=== PATIENT | male | born 1930 | race Caucasian/White ===

== ENCOUNTER 2016-12-03 09:09 | Outpatient (CLI) | payer MEDICARE | END 2016-12-03 09:10 | disposition home or self-care (01) | DX: I08.0 Rheumatic disorders of both mitral and aortic valves (principal); I51.7 Cardiomegaly ==

== ENCOUNTER 2016-12-27 07:14 | Outpatient (CLI) | payer MEDICARE | END 2016-12-27 07:15 | disposition home or self-care (01) | DX: Z94.0 Kidney transplant status (principal); Z48.298 Encounter for aftercare following other organ transplant; T86.90 Unspecified complication of unspecified transplanted organ and tissue; E83.40 Disorders of magnesium metabolism, unspecified ==

== ENCOUNTER 2017-01-24 07:35 | Outpatient (CLI) | payer MEDICARE | END 2017-01-24 07:36 | disposition home or self-care (01) | DX: Z94.0 Kidney transplant status (principal); Z48.298 Encounter for aftercare following other organ transplant; T86.40 Unspecified complication of liver transplant; E83.40 Disorders of magnesium metabolism, unspecified ==

== ENCOUNTER 2017-03-21 07:15 | Outpatient (CLI) | payer MEDICARE | END 2017-03-21 07:16 | disposition home or self-care (01) | DX: Z94.0 Kidney transplant status (principal); Z48.298 Encounter for aftercare following other organ transplant; T86.40 Unspecified complication of liver transplant; E83.40 Disorders of magnesium metabolism, unspecified ==

== ENCOUNTER 2017-04-03 07:01 | Outpatient (CLI) | payer MEDICARE | END 2017-04-03 07:02 | disposition home or self-care (01) | LOC: LAB.F 07:01 | PROVIDERS: ATTEND Internal Medicine Nephrology | DX: T86.10 Unspecified complication of kidney transplant (principal) | CPT/HCPCS: 36415; 80197 ==

== ENCOUNTER 2017-07-30 13:28 | Outpatient (CLI) | payer MEDICARE | END 2017-07-30 13:29 | disposition home or self-care (01) | LOC: SC 13:28 | PROVIDERS: ATTEND Internal Medicine Pulmonary Disease | DX: G47.8 Other sleep disorders (principal); R06.83 Snoring; Z94.0 Kidney transplant status | CPT/HCPCS: 99203; G0463; 99212 ==

== ENCOUNTER 2017-08-01 07:42 | Day surgery (SDC) | payer MEDICARE ==
[~2017-08-01 07:42] MED LIST: BRIMONIDINE 0.2% OPHTH DROPS 5 ML ONE; TIMOLOL 0.5% OPHTH DROPS ONE
[2017-08-01] MEDS ORDERED: KETOROLAC 0.45% OPHTH DROPS ONE (08:10)
[2017-08-01] MEDS ORDERED: PROPARACAINE 0.5% OPHTH DROPS 15 ML ONE (08:10)
[2017-08-01] MEDS ORDERED: PHENYLEPHRINE 2.5% OPHTH 2 ML DROPS ONE (08:10)
[2017-08-01] MEDS ORDERED: CYCLOPENTOLATE 1% OPHTH DROPS 2 ML ONE (08:10)
[2017-08-01] MEDS ORDERED: LACTATED RINGERS 500 ML IV ONE (08:15)
[2017-08-01] MEDS ORDERED: PROPARACAINE 0.5% OPHTH DROPS 15 ML OPTH ONE ×2 (08:20→08:58)
[2017-08-01] MEDS ORDERED: CYCLOPENTOLATE 1% OPHTH DROPS 2 ML OPTH ONE (08:20)
[2017-08-01] MEDS ORDERED: KETOROLAC 0.45% OPHTH DROPS OPTH ONE (08:20)
[2017-08-01] MEDS ORDERED: PHENYLEPHRINE 2.5% OPHTH 2 ML DROPS OPTH ONE (08:20)
[2017-08-01] MEDS ORDERED: TIMOLOL 0.5% OPHTH DROPS OPTH ONE (08:58)
[2017-08-01] MEDS ORDERED: BSS/LIDOCAINE/EPINEPHRINE 1 ML SYRINGE IO ONE ×2 (08:58)
[2017-08-01] MEDS ORDERED: TRIAMCIN/MOXIFLOX/VANCO 1 ML VIAL IO ONE ×2 (08:58)
[2017-08-01] MEDS ORDERED: BRIMONIDINE 0.2% OPHTH DROPS 5 ML OPTH ONE (08:58)
[2017-08-01] MEDS ORDERED: CHONDR SULF/HYALURONATE SYRINGE IO ONE (08:58)
[2017-08-01] MEDS ORDERED: EPINEPHrine 1 MG/ML AMP IVP ONE (08:58)
[2017-08-01] MEDS ORDERED: MIDAZOLAM 2 MG/2 ML VIAL IVP ONE (09:00)
[2017-08-01 09:42] VITALS: BP 133/72
--- NOTE | 2017-08-01 10:46 | OPERATIVE REPORT ---
DATE OF SURGERY: 08/01/2017 00:00:00 PREOPERATIVE DIAGNOSIS: Visually significant cataract, right eye, complex due to a small pupil requiring pupil expansion with a Malyugin ring. This is his first cataract surgery. POSTOPERATIVE DIAGNOSIS: Visually significant cataract, right eye, complex due to a small pupil requiring pupil expansion with a Malyugin ring. This is his first cataract surgery. NAME OF PROCEDURE: Phacoemulsification posterior chamber intraocular lens implant, right eye. SURGEON: Orlando Suárez MD. ANESTHESIA: Monitored anesthesia care. COMPLICATIONS: None. OPERATIVE INDICATIONS: This is an 86-year-old man with progressive vision loss in the right eye due to 2+ nuclear sclerotic and 2+ cortical cataract. Best corrected visual acuity was 20/30 with glare to 20/60 in the right eye. Indications for surgery were overall decrease in vision, difficulty seeing words and game scores on TV, difficulty driving in low light or at night, difficulty driving at night because of headlights from other vehicles, difficulty with glare or bright lights in any situation, and he says that words on paper look fuzzy. He was consented at length concerning the risks and benefits of cataract surgery, after which he expressed a desire to proceed with surgery. OPERATIVE PROCEDURE: The patient was taken into OR #2 and placed under monitored anesthesia care. A surgical time-out was conducted confirming the correct patient, correct procedure and correct surgical site. He was given topical anesthesia and then prepped and draped in the usual sterile fashion. The eye was entered at the 12 and 9 o'clock positions. Intracameral Shugarcaine was injected into the anterior chamber followed by Viscoat. A 7 mm Malyugin ring was then inserted into the anterior chamber and engaged the pupil margin at 4 points to expand the pupil. Then, a continuous tear curvilinear capsulorrhexis was performed. The nucleus was hydrodissected and phacoemulsified. The cortex was evacuated using automated infusion aspiration. Provisc was injected in the capsular bag and a 23.0 diopter intraocular lens was inserted into the bag. The Malyugin ring was then disengaged from the pupil margin and removed from the anterior chamber. I/A was used to evacuate the viscoelastic materials. Approximately 0.7 mL of a mixture of triamcinolone, moxifloxacin, and vancomycin was injected subconjunctivally in the superior quadrant for infection and inflammation prophylaxis. The eye was inflated to a physiologic pressure using balanced salt solution and found to be watertight. The patient was taken from the operating room in good condition and given postoperative instructions. JOB #: [id number] EXT JOB #:[id number] CRISS
== END 2017-08-01 07:43 | disposition home or self-care (01) ==
LOC: SDS 07:42
PROVIDERS: ATTEND Ophthalmology
PROC: 08RJ3JZ Replacement of Right Lens with Synthetic Substitute, Percutaneous Approach (ICD-10-PCS; principal; 2017-08-01 09:05)
DX: H25.811 Combined forms of age-related cataract, right eye (principal); H57.03 Miosis; Z79.82 Long term (current) use of aspirin
CPT/HCPCS: 66982; A9270; J3490; V2632

== ENCOUNTER 2017-09-17 18:57 | Outpatient (CLI) | payer MEDICARE | END 2017-09-17 18:58 | disposition home or self-care (01) | LOC: SC 18:57 | PROVIDERS: ATTEND Internal Medicine Pulmonary Disease | DX: G47.33 Obstructive sleep apnea (adult) (pediatric) (principal); G47.61 Periodic limb movement disorder; Z68.26 Body mass index [BMI] 26.0-26.9, adult | CPT/HCPCS: 95810 ==

== ENCOUNTER 2017-09-25 09:42 | Outpatient (CLI) | payer MEDICARE | END 2017-09-25 09:43 | disposition home or self-care (01) | LOC: SC 09:42 | PROVIDERS: ATTEND Nurse Practitioner Family | DX: G47.33 Obstructive sleep apnea (adult) (pediatric) (principal); G47.61 Periodic limb movement disorder; I49.9 Cardiac arrhythmia, unspecified | CPT/HCPCS: 99214; G0463; 99212 ==

== ENCOUNTER 2017-11-04 07:14 | Outpatient (CLI) | payer MEDICARE ==
[2017-11-04 10:49] LABS: BASOPHILS % (AUTO) 0.5 %; EOSINOPHILS # (AUTO) 0.1 10^3/uL (0.0-0.7); EOSINOPHILS % (AUTO) 3.4 %; HCT - HEMATOCRIT 37.1 % (42.0-52.0); HGB - HEMOGLOBIN 12.8 g/dL (14.0-18.0); LYMPHOCYTES # (AUTO) 0.5 10^3/uL (1.5-3.5); LYMPHOCYTES % (AUTO) 12.7 %; MEAN CORPUSCULAR HEMOGLOBIN 32.6 pg (27.0-31.0); MEAN CORPUSCULAR HGB CONC 34.4 g/dL (32.0-36.0); MEAN CORPUSCULAR VOLUME 94.6 fL (80.0-94.0); MEAN PLATELET VOLUME 9.1 fL (7.4-11.4); MONOCYTES # (AUTO) 0.5 10^3/uL (0.0-1.0); NEUTROPHILS # (AUTO) 2.9 10^3/uL (1.5-6.6); NEUTROPHILS % (AUTO) 71.4 %; NUCLEATED RED BLOOD CELLS AUTO 0.1 /100WBC; RED BLOOD COUNT 3.92 10^6/uL (4.70-6.10); RED CELL DISTRIBUTION WIDTH 13.4 % (12.0-15.0); UNCORRECTED WHITE BLOOD COUNT 4.1 x10^3/uL; WHITE BLOOD COUNT 4.1 x10^3/uL (4.8-10.8)
[2017-11-04 10:54] LABS: BILIRUBIN,URINE NEGATIVE (NEGATIVE)
[2017-11-04 10:56] LABS: UA CHARGE (STRIP ONLY) YES; UR CULTURE IF IND NOT INDICATED
[2017-11-04 11:02] LABS: ALBUMIN/GLOBULIN RATIO 1.5 (1.0-2.2); BILIRUBIN,TOTAL 0.9 mg/dL (0.2-1.0); CREATININE 1.6 mg/dL (0.6-1.2); PHOSPHORUS 3.3 mg/dL (2.5-4.6); POTASSIUM 4.4 mmol/L (3.5-5.0)
== END 2017-11-04 07:15 | disposition home or self-care (01) ==
LOC: LAB.F 07:14
PROVIDERS: ATTEND Internal Medicine Nephrology
DX: N05.9 Unspecified nephritic syndrome with unspecified morphologic changes (principal); D70.9 Neutropenia, unspecified; T86.10 Unspecified complication of kidney transplant; Z94.0 Kidney transplant status; T86.40 Unspecified complication of liver transplant; E83.40 Disorders of magnesium metabolism, unspecified; Z51.81 Encounter for therapeutic drug level monitoring; Z48.298 Encounter for aftercare following other organ transplant
CPT/HCPCS: 36415; 80053; 80197; 81001; 81003; 82570; 83735; 84100; 84156; 85025; 87086

== ENCOUNTER 2017-12-02 07:20 | Outpatient (CLI) | payer MEDICARE ==
[2017-12-02 12:02] LABS: BASOPHILS % (AUTO) 0.6 %; EOSINOPHILS # (AUTO) 0.2 10^3/uL (0.0-0.7); EOSINOPHILS % (AUTO) 3.3 %; HGB - HEMOGLOBIN 13.1 g/dL (14.0-18.0); LYMPHOCYTES # (AUTO) 0.5 10^3/uL (1.5-3.5); LYMPHOCYTES % (AUTO) 10.5 %; MEAN CORPUSCULAR HEMOGLOBIN 32.1 pg (27.0-31.0); MEAN CORPUSCULAR HGB CONC 33.7 g/dL (32.0-36.0); MEAN CORPUSCULAR VOLUME 95.1 fL (80.0-94.0); MEAN PLATELET VOLUME 8.5 fL (7.4-11.4); MONOCYTES # (AUTO) 0.6 10^3/uL (0.0-1.0); MONOCYTES % (AUTO) 12.3 %; NEUTROPHILS # (AUTO) 3.7 10^3/uL (1.5-6.6); NEUTROPHILS % (AUTO) 73.3 %; PLT - PLATELET COUNT 142 10^3/uL (130-450); RED CELL DISTRIBUTION WIDTH 13.4 % (12.0-15.0); WHITE BLOOD COUNT 5.1 x10^3/uL (4.8-10.8)
[2017-12-02 12:26] LABS: BILIRUBIN,URINE NEGATIVE (NEGATIVE); GLUCOSE, URINE (UA) NEGATIVE (NEGATIVE); KETONES,URINE (UA) NEGATIVE (NEGATIVE); LEUKOCYTE ESTERASE, URINE NEGATIVE (NEGATIVE); NITRITE,URINE NEGATIVE (NEGATIVE); OCCULT BLOOD,URINE NEGATIVE (NEGATIVE); PROTEIN,URINE NEGATIVE (NEGATIVE); UROBILINOGEN,URINE 0.2 (NORMAL) E.U./dL (NORMAL)
[2017-12-02 12:27] LABS: CLARITY,URINE CLEAR (CLEAR)
[2017-12-02 12:39] LABS: ALBUMIN 3.6 g/dL (3.2-5.5); ALBUMIN/GLOBULIN RATIO 1.4 (1.0-2.2); BILIRUBIN,TOTAL 0.7 mg/dL (0.2-1.0); CALCIUM 8.8 mg/dL (8.5-10.3); CREATININE 1.6 mg/dL (0.6-1.2); MAGNESIUM 1.9 mg/dL (1.7-2.8); PHOSPHORUS 2.7 mg/dL (2.5-4.6); TOTAL PROTEIN 6.2 g/dL (6.7-8.2)
== END 2017-12-02 07:21 | disposition home or self-care (01) ==
LOC: LAB.F 07:20
PROVIDERS: ATTEND Internal Medicine Nephrology
DX: Z94.0 Kidney transplant status (principal); Z51.81 Encounter for therapeutic drug level monitoring; T86.90 Unspecified complication of unspecified transplanted organ and tissue; E83.40 Disorders of magnesium metabolism, unspecified
CPT/HCPCS: 36415; 80053; 80197; 81001; 81003; 83735; 84100; 84156; 85025; 87086

== ENCOUNTER 2017-12-30 07:03 | Outpatient (CLI) | payer MEDICARE ==
[2017-12-30 10:57] LABS: BILIRUBIN,URINE NEGATIVE (NEGATIVE); GLUCOSE, URINE (UA) NEGATIVE (NEGATIVE); KETONES,URINE (UA) NEGATIVE (NEGATIVE); LEUKOCYTE ESTERASE, URINE NEGATIVE (NEGATIVE); NITRITE,URINE NEGATIVE (NEGATIVE); OCCULT BLOOD,URINE NEGATIVE (NEGATIVE); PROTEIN,URINE NEGATIVE (NEGATIVE); UROBILINOGEN,URINE 0.2 (NORMAL) E.U./dL (NORMAL)
[2017-12-30 11:03] LABS: BASOPHILS % (AUTO) 0.5 %; EOSINOPHILS # (AUTO) 0.2 10^3/uL (0.0-0.7); EOSINOPHILS % (AUTO) 3.7 %; HGB - HEMOGLOBIN 13.1 g/dL (14.0-18.0); LYMPHOCYTES # (AUTO) 0.6 10^3/uL (1.5-3.5); MEAN CORPUSCULAR HEMOGLOBIN 32.1 pg (27.0-31.0); MEAN CORPUSCULAR HGB CONC 34.2 g/dL (32.0-36.0); MEAN CORPUSCULAR VOLUME 93.9 fL (80.0-94.0); MEAN PLATELET VOLUME 8.3 fL (7.4-11.4); MONOCYTES # (AUTO) 0.6 10^3/uL (0.0-1.0); MONOCYTES % (AUTO) 13.4 %; NEUTROPHILS # (AUTO) 3.4 10^3/uL (1.5-6.6); NEUTROPHILS % (AUTO) 70.4 %; PLT - PLATELET COUNT 170 10^3/uL (130-450); RED BLOOD COUNT 4.08 10^6/uL (4.70-6.10); RED CELL DISTRIBUTION WIDTH 13.6 % (12.0-15.0); WHITE BLOOD COUNT 4.8 x10^3/uL (4.8-10.8)
[2017-12-30 11:10] LABS: ALBUMIN 3.5 g/dL (3.2-5.5); ALBUMIN/GLOBULIN RATIO 1.2 (1.0-2.2); BILIRUBIN,TOTAL 0.6 mg/dL (0.2-1.0); CALCIUM 8.6 mg/dL (8.5-10.3); CREATININE 1.5 mg/dL (0.6-1.2); MAGNESIUM 2.2 mg/dL (1.7-2.8); PHOSPHORUS 3.2 mg/dL (2.5-4.6); TOTAL PROTEIN 6.4 g/dL (6.7-8.2)
[2017-12-30 11:20] LABS: CLARITY,URINE CLEAR (CLEAR)
== END 2017-12-30 07:04 | disposition home or self-care (01) ==
LOC: LAB.F 07:03
PROVIDERS: ATTEND Internal Medicine Nephrology
DX: Z94.0 Kidney transplant status (principal); T86.90 Unspecified complication of unspecified transplanted organ and tissue; E83.40 Disorders of magnesium metabolism, unspecified; Z51.81 Encounter for therapeutic drug level monitoring
CPT/HCPCS: 36415; 80053; 80195; 80197; 81001; 81003; 81599; 83735; 84100; 84156; 85025; 87086

== ENCOUNTER 2018-02-06 07:10 | Outpatient (CLI) | payer MEDICARE ==
[2018-02-06 12:35] LABS: BASOPHILS % (AUTO) 0.4 %; BILIRUBIN,URINE NEGATIVE (NEGATIVE); EOSINOPHILS # (AUTO) 0.1 10^3/uL (0.0-0.7); EOSINOPHILS % (AUTO) 2.1 %; GLUCOSE, URINE (UA) NEGATIVE (NEGATIVE); HGB - HEMOGLOBIN 12.4 g/dL (14.0-18.0); KETONES,URINE (UA) NEGATIVE (NEGATIVE); LEUKOCYTE ESTERASE, URINE NEGATIVE (NEGATIVE); LYMPHOCYTES # (AUTO) 0.4 10^3/uL (1.5-3.5); LYMPHOCYTES % (AUTO) 8.1 %; MEAN CORPUSCULAR HEMOGLOBIN 31.1 pg (27.0-31.0); MEAN CORPUSCULAR HGB CONC 34.1 g/dL (32.0-36.0); MEAN CORPUSCULAR VOLUME 91.2 fL (80.0-94.0); MEAN PLATELET VOLUME 7.9 fL (7.4-11.4); MONOCYTES # (AUTO) 0.6 10^3/uL (0.0-1.0); MONOCYTES % (AUTO) 13.4 %; NEUTROPHILS # (AUTO) 3.3 10^3/uL (1.5-6.6); NITRITE,URINE NEGATIVE (NEGATIVE); OCCULT BLOOD,URINE NEGATIVE (NEGATIVE); PH,URINE 5.5 PH (5.0-7.5); PLT - PLATELET COUNT 130 10^3/uL (130-450); PROTEIN,URINE NEGATIVE (NEGATIVE); RED BLOOD COUNT 3.99 10^6/uL (4.70-6.10); RED CELL DISTRIBUTION WIDTH 13.3 % (12.0-15.0); UROBILINOGEN,URINE 0.2 (NORMAL) E.U./dL (NORMAL); WHITE BLOOD COUNT 4.4 x10^3/uL (4.8-10.8)
[2018-02-06 13:04] LABS: CLARITY,URINE CLEAR (CLEAR)
[2018-02-06 13:10] LABS: ALBUMIN 3.4 g/dL (3.2-5.5); ALBUMIN/GLOBULIN RATIO 1.2 (1.0-2.2); BILIRUBIN,TOTAL 0.8 mg/dL (0.2-1.0); CALCIUM 8.7 mg/dL (8.5-10.3); CREATININE 1.4 mg/dL (0.6-1.2); MAGNESIUM 2.1 mg/dL (1.7-2.8); PHOSPHORUS 2.8 mg/dL (2.5-4.6); TOTAL PROTEIN 6.3 g/dL (6.7-8.2)
== END 2018-02-06 07:11 | disposition home or self-care (01) ==
LOC: LAB.F 07:10
PROVIDERS: ATTEND Internal Medicine Nephrology
DX: T86.90 Unspecified complication of unspecified transplanted organ and tissue (principal); E83.40 Disorders of magnesium metabolism, unspecified; Z94.0 Kidney transplant status; Z51.81 Encounter for therapeutic drug level monitoring
CPT/HCPCS: 36415; 80053; 80195; 81001; 81003; 81599; 83735; 84100; 84156; 85025; 87086

== ENCOUNTER 2018-02-20 07:05 | Outpatient (CLI) | payer MEDICARE ==
[2018-02-20 11:01] LABS: BILIRUBIN,URINE NEGATIVE (NEGATIVE); GLUCOSE, URINE (UA) NEGATIVE (NEGATIVE); KETONES,URINE (UA) NEGATIVE (NEGATIVE); LEUKOCYTE ESTERASE, URINE NEGATIVE (NEGATIVE); NITRITE,URINE NEGATIVE (NEGATIVE); OCCULT BLOOD,URINE TRACE-LYSE (NEGATIVE); PROTEIN,URINE TRACE mg/dL (NEGATIVE); UROBILINOGEN,URINE 0.2 (NORMAL) E.U./dL (NORMAL)
[2018-02-20 11:05] LABS: CLARITY,URINE CLEAR (CLEAR)
[2018-02-20 11:09] LABS: CREATININE,URINE 106.3 mg/dL; PROTEIN/CREATININE RATIO,URINE 0.3 (<=0.2)
[2018-02-20 11:12] LABS: BASOPHILS % (AUTO) 0.6 %; EOSINOPHILS # (AUTO) 0.1 10^3/uL (0.0-0.7); HGB - HEMOGLOBIN 12.1 g/dL (14.0-18.0); LYMPHOCYTES # (AUTO) 0.2 10^3/uL (1.5-3.5); MEAN CORPUSCULAR HEMOGLOBIN 30.8 pg (27.0-31.0); MEAN CORPUSCULAR HGB CONC 34.3 g/dL (32.0-36.0); MEAN CORPUSCULAR VOLUME 89.8 fL (80.0-94.0); MEAN PLATELET VOLUME 7.8 fL (7.4-11.4); MONOCYTES # (AUTO) 0.8 10^3/uL (0.0-1.0); MONOCYTES % (AUTO) 16.8 %; NEUTROPHILS # (AUTO) 3.4 10^3/uL (1.5-6.6); NEUTROPHILS % (AUTO) 75.6 %; PLT - PLATELET COUNT 145 10^3/uL (130-450); RED BLOOD COUNT 3.94 10^6/uL (4.70-6.10); RED CELL DISTRIBUTION WIDTH 12.8 % (12.0-15.0); WHITE BLOOD COUNT 4.5 x10^3/uL (4.8-10.8)
[2018-02-20 11:20] LABS: ALBUMIN 3.2 g/dL (3.2-5.5); ALKALINE PHOSPHATASE 63 IU/L (42-121); ALT ALANINE AMINOTRANSFERASE 21 IU/L (10-60); AST ASPARTATE AMINOTRANSFERASE 26 IU/L (10-42); BILIRUBIN,TOTAL 0.7 mg/dL (0.2-1.0); BUN - BLOOD UREA NITROGEN 28 mg/dL (6-20); CALCIUM 8.5 mg/dL (8.5-10.3); CARBON DIOXIDE - CO2 23 mmol/L (21-32); CHLORIDE 102 mmol/L (101-111); CHOL/HDL RATIO 3.2 (<5.0); CHOLESTEROL 224 mg/dL; CREATININE 1.4 mg/dL (0.6-1.2); GFR - MDRD 48 (>89); GLUCOSE 104 mg/dL (70-100); HDL CHOLESTEROL 70 mg/dL; LDL CHOLESTEROL,CALCULATED 121 mg/dL; LDL/HDL RATIO 1.7 (<3.6); MAGNESIUM 2.1 mg/dL (1.7-2.8); PHOSPHORUS 2.8 mg/dL (2.5-4.6); SODIUM 132 mmol/L (135-145); TOTAL PROTEIN 6.3 g/dL (6.7-8.2); VLDL CHOLESTEROL 33 mg/dL
== END 2018-02-20 07:06 | disposition home or self-care (01) ==
LOC: LAB.F 07:05
PROVIDERS: ATTEND Internal Medicine Nephrology
DX: T86.90 Unspecified complication of unspecified transplanted organ and tissue (principal); E83.40 Disorders of magnesium metabolism, unspecified; Z94.0 Kidney transplant status; Z48.298 Encounter for aftercare following other organ transplant; R82.99 Other abnormal findings in urine
CPT/HCPCS: 36415; 80053; 80061; 80195; 81001; 81003; 81599; 82570; 83721; 83735; 84100; 84156; 85025

== ENCOUNTER 2018-06-02 07:16 | Outpatient (CLI) | payer MEDICARE ==
[2018-06-02 11:43] LABS: BASOPHILS % (AUTO) 0.6 %; EOSINOPHILS # (AUTO) 0.1 10^3/uL (0.0-0.7); EOSINOPHILS % (AUTO) 1.7 %; HGB - HEMOGLOBIN 8.3 g/dL (14.0-18.0); LYMPHOCYTES # (AUTO) 0.2 10^3/uL (1.5-3.5); LYMPHOCYTES % (AUTO) 4.8 %; MEAN CORPUSCULAR HEMOGLOBIN 29.8 pg (27.0-31.0); MEAN CORPUSCULAR HGB CONC 32.4 g/dL (32.0-36.0); MEAN CORPUSCULAR VOLUME 91.8 fL (80.0-94.0); MEAN PLATELET VOLUME 9.1 fL (7.4-11.4); MONOCYTES # (AUTO) 0.6 10^3/uL (0.0-1.0); MONOCYTES % (AUTO) 16.5 %; NEUTROPHILS # (AUTO) 2.9 10^3/uL (1.5-6.6); NEUTROPHILS % (AUTO) 76.4 %; PLT - PLATELET COUNT 94 10^3/uL (130-450); RED BLOOD COUNT 2.79 10^6/uL (4.70-6.10); RED CELL DISTRIBUTION WIDTH 18.5 % (12.0-15.0); WHITE BLOOD COUNT 3.8 x10^3/uL (4.8-10.8)
[2018-06-02 11:49] LABS: BILIRUBIN,URINE NEGATIVE (NEGATIVE); GLUCOSE, URINE (UA) NEGATIVE (NEGATIVE); KETONES,URINE (UA) NEGATIVE (NEGATIVE); LEUKOCYTE ESTERASE, URINE NEGATIVE (NEGATIVE); NITRITE,URINE NEGATIVE (NEGATIVE); OCCULT BLOOD,URINE NEGATIVE (NEGATIVE); PROTEIN,URINE TRACE mg/dL (NEGATIVE); UROBILINOGEN,URINE 0.2 (NORMAL) E.U./dL (NORMAL)
[2018-06-02 11:56] LABS: ALBUMIN 2.4 g/dL (3.2-5.5); ALBUMIN/GLOBULIN RATIO 0.8 (1.0-2.2); BILIRUBIN,TOTAL 0.9 mg/dL (0.2-1.0); CALCIUM 8.1 mg/dL (8.5-10.3); CREATININE 1.6 mg/dL (0.6-1.2); TOTAL PROTEIN 5.3 g/dL (6.7-8.2)
[2018-06-02 11:58] LABS: CREATININE,URINE 179.7 mg/dL; PROTEIN/CREATININE RATIO,URINE 0.3 (<=0.2)
[2018-06-02 11:58] LABS: MAGNESIUM 2.2 mg/dL (1.7-2.8); PHOSPHORUS 2.8 mg/dL (2.5-4.6)
[2018-06-02 11:59] LABS: PT - PROTHROMBIN TIME 10.9 secs (9.9-12.6)
[2018-06-02 12:13] LABS: CLARITY,URINE CLOUDY (CLEAR)
[2018-06-02 12:16] LABS: RBC,URINE 0-5 /HPF (0-5)
[2018-06-02 12:17] LABS: AMORPHOUS SEDIMENT,UR Marked /LPF; BACTERIA,URINE None Seen /HPF (None Seen); SQUAMOUS EPITHELIAL CELL,UR NONE SEEN (<= Few)
== END 2018-06-02 07:17 | disposition home or self-care (01) ==
LOC: LAB.F 07:16
PROVIDERS: ATTEND Internal Medicine Nephrology
DX: T86.90 Unspecified complication of unspecified transplanted organ and tissue (principal); C4A.9 Merkel cell carcinoma, unspecified; C7B.1 Secondary Merkel cell carcinoma; E83.40 Disorders of magnesium metabolism, unspecified; Z94.0 Kidney transplant status; Z48.298 Encounter for aftercare following other organ transplant
CPT/HCPCS: 36415; 80053; 80195; 81001; 81003; 81599; 82570; 83735; 84100; 84156; 85025; 85610; 85730; 87086

== ENCOUNTER 2018-06-06 07:10 | Outpatient (CLI) | payer MEDICARE ==
[2018-06-06 10:38] LABS: ALBUMIN 2.4 g/dL (3.2-5.5); ALBUMIN/GLOBULIN RATIO 0.8 (1.0-2.2); BILIRUBIN,TOTAL 1.3 mg/dL (0.2-1.0); TOTAL PROTEIN 5.3 g/dL (6.7-8.2)
== END 2018-06-06 07:11 | disposition home or self-care (01) ==
LOC: LAB.F 07:10
PROVIDERS: ATTEND Internal Medicine Nephrology
DX: C7B.1 Secondary Merkel cell carcinoma (principal)
CPT/HCPCS: 36415; 80053; 81001; 81003; 81599; 83735; 84100; 84156; 85025; 87086

== ENCOUNTER 2018-06-17 15:35 | Outpatient (CLI) | payer MEDICARE ==
--- NOTE | 2018-06-17 20:37 | CONSULTATION NOTE ---
Palliative Care Consultation - Referral Referring Provider: Dr. Barrera Meneses Time of Visit: 9498-2168 Referral setting: Home (It is a taxing considerable effort for the patient leave the home secondary to severe fatigue, breathlessness, and lower extremity weakness) Referral Reason: Heladio Cell CA/Liver mets/Hx of kidney transplant - Information Sources Records reviewed: Previous records reviewed History/Review of Systems obtained from: Patient, Family (daughter Ayesha assisted with hx; , son and DIL, several grandchildren present for family conference) Exam limitations: No limitations - History of Present Illness Brief History of Present Illness: This is a tony 87-year-old gentleman who has metastatic Brando cell carcinoma , involving the liver. He first noted a blue colored nodule at his right elbow and spring 2016, which confirmed biopsy revealing [place] cell carcinoma 07/2017. He was found to have a right axillary lymph node in 09/2017, and underwent a right axillary clinical node dissection finding additional 3 lymph nodes involved. At this point in time he received 6 weeks of adjuvant radiation, with complications of edema of right upper extremity and radiation dermatitis. He was to start immunotherapy, and found on CT scan liver metastases with biopsy confirmed of metastatic [place] cell carcinoma on 03/2018. He has had 1 dose of his immunotherapy Avelulmab 05/27, he had delay in starting therapy of 7 weeks which did show progression of disease in his liver. He had a port placement 05/29, but in the meantime has developed anasarca and reduced urine output. His course has been complicated by the fact he is a recipient of a kidney transplant in 2012. Previously had been on dialysis for 3 years and dialysis size to the left upper extremity fistula which is still present. 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 He also has known renal artery stenosis for which she is on Plavix and aspirin. He has been followed closely by the transplant team, and came off his sirolimus 4 days ago, in hopes to allow the immunotherapy to work better. He is at risk for rejection of his transplant kidney, he is experiencing pain on his right side, and now anasarca with decreased urine output. We did initiate furosemide , initially with a fluid loss of 1500 mils, but since that time just small amounts though he is still voiding. Patient's understanding of his disease, is that he does have serious illness, and high likelihood of ongoing decline. He and his family are hoping for the best, with improved quality and possibly quantity of life, patient does state he is willing to undergo dialysis if needed in the context of his treatment plan , but does present quite weak, and with high symptom burden today. Palliative care to provide support, counseling, and anticipatory guidance regarding the continuum of care. Medical/Surgical History - Past Medical History Cardiovascular: reports: Hypertension Respiratory: reports: None Neuro: reports: None Endocrine/Autoimmune: reports: None, Other (discontinued antirejection transplant drugs 4 days ago) GI: reports: Colon polyps, C.difficile (history 3 years ago) : reports: Benign prostate hypertrophy, Dialysis (hx of dialysis for three years prior to transplant), Other (transplant kidney) HEENT: reports: Glaucoma Psych: reports: Anxiety Musculoskeletal: reports: Gout, Fatigue, Other Derm: reports: None MRSA Hx?: No - Past Surgical History General: reports: Cholecystectomy, Bowel surgery (colon resection for polyps), Other (hernia repair) Ortho: reports: Shoulder arthroplasty Cardiovascular: reports: Other (has left fistula; new port placed on right) Derm: reports: Skin cancer surgery (for SCC) - Substance History Use: Uses substance without health or social issues: NONE Social History - Living Situation Living arrangement: At home Living Situation: With spouse/s.o., With family Support System: Patient lives with his Veronica, he has health problems of her own. Her granddaughter Isabel is currently living with them, to provide support. [place] part of managing his medical care, appointments, and coordinating care at this point in time. She is taking a leave of absence from her work after this week to provide more support. 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 He has many friends and family, is supported from his local automobile carpets molder Beckryanne Suarezon, he comes and visits on a regular basis. Family History - Family History Family History: Mother: ( of old age 96), Cancer ( at age 75), Father: , Brother: Alive and Well Medications/Allergies - Medications Home Medications: Ambulatory Orders Medication Instructions Recorded Confirmed Doxazosin [Cardura] 2 mg PO HS 09/30/13 06/17/18 Aspirin [Aspir 81] 81 mg PO DAILY 03/11/15 06/17/18 Calcium Carbonate [Tums] 750 mg PO BID 03/11/15 06/17/18 Latanoprost 0.005% Ophth Drops 1 drops OPTH QPM 03/11/15 06/17/18 [Xalatan Ophth Drops] Lovastatin [Altoprev] 20 mg PO DAILY 03/11/15 06/17/18 Multivitamin [Multivitamins] 1 each PO DAILY 03/11/15 06/17/18 Timolol 0.5% Ophth Drops [Timoptic 1 drops OPTH BID 03/11/15 06/17/18 0.5% Ophth Drops] Acyclovir 400 mg PO BID 08/01/17 06/17/18 Clopidogrel [Plavix] 75 mg PO DAILY 08/01/17 06/17/18 predniSONE [Prednisone] 5 mg PO DAILY 08/01/17 06/17/18 Furosemide 20 mg PO DAILY 06/17/18 06/17/18 LORazepam [Lorazepam Intensol] 0.25 mg PO Q6HR PRN 06/17/18 06/17/18 Morphine Sulfate [Morphine Sulf 5 mg SL .Q2 PRN 06/17/18 06/17/18 Oral (Roxanol)] Ondansetron [Zuplenz] 4 mg PO Q6HR PRN 06/17/18 06/17/18 Polyethylene Glycol 3350 [Miralax] 8.5 - 17 gm PO DAILY PRN 06/17/18 06/17/18 Potassium Chloride 10 meq PO DAILY 06/17/18 06/17/18 Sennosides [Senna Lax] 1 - 2 tab PO DAILY PRN 06/17/18 06/17/18 oxyCODONE [Roxicodone] 2.5 - 5 mg PO DAILY PRN 06/17/18 06/17/18 - Allergies Allergies/Adverse Reactions: Allergies Allergy/AdvReac Type Severity Reaction Status Date / Time No Known Drug Allergies Allergy Verified 08/01/17 08:13 Review of Systems - Constitutional Constitutional: reports: Fatigue, Weakness, Poor appetite, Other (patient with temporal and upper extremity wasting; has anasarca so weight 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 denies: Fever, Chills - Ears, Nose & Throat Ears, Nose & Throat: reports: Hearing loss, Hearing aids, Dry mouth - Cardiovascular Cardiovascular: reports: Edema, Exertional dyspnea, Decr. exercise tolerance. denies: Chest pain - Respiratory Respiratory: reports: SOB at rest, SOB with exertion. denies: Cough, Sputum production - Gastrointestinal Gastrointestinal: reports: Abdominal distention, Constipation (intermittent; went yesterday 2-3 x), Black stools, Nausea, Vomiting, Bloating, Poor appetite, Early satiety. denies: Reflux/heartburn - Genitourinary Genitourinary: reports: Other (voiding only small amounts 10-15 mls 5-6x a day/ 200 mls at night; had one 24 hour period with initiation of lasix of 1500 mls). denies: Incontinence - Musculoskeletal Musculoskeletal: reports: Back pain (right sided radiating shoulder to buttocks; ), Stiffness, Muscle weakness, Assistive devices (resistant to walker; encouraged at visit), Other (difficulty walking with LE edema and weakness) - Integumentary Integumentary: reports: Dryness - Neurological Neurological: reports: General weakness - Psychiatric Psychiatric: denies: Depression (appropriately tearful) - Hematologic/Lymphatic Hematologic/Lymphatic: reports: Anemia (benefited from recent transfusion) - All Other Systems All Other Systems: reports: Reviewed and negative Physical Exam - Vital Signs Temperature: 97.1 C Pulse Rate: 73 Respiratory Rate: 20 O2 Saturation: 95 (ra @ rest) Blood Pressure: 102/64 - Physical Exam General Appearance: positive: Moderate distress (shifting with pain behaviors; appears uncomfortable) Eyes Bilateral: positive: Normal inspection ENT: positive: No signs of dehydration Cardiovascular: positive: Regular rate & rhythm Respiratory: positive: Breath sounds nml, Diminished in bases (right greater than left). negative: Wheezes, Rales, Rhonchi Abdomen: positive: Nml bowel sounds, Tenderness, Distended, Taut, Other (may receive paracentesis on visit if possible) Skin: positive: Pallor, Dryness Extremities: positive: Pedal edema (taut jody legs up into sacral area) Neurologic/Psychiatric: positive: Oriented x3, Weakness, Other (tearful through conversation;) Palliative Care - POLST Patient has POLST: No Pain: Location (Patient does not identify his discomfort as acute pain, 8 he rates his pain at a 2 out of 10, but does radiate to his comfort as a 10 out of 10 and uncomfortable. Most of his pain "discomfort" is through his abdominal area with tightness as well as on his left upper side radiating down to his hip area, may be referred pain from his liver as well it is over the area of his transplant kidney. Patient has tried oxycodone 5 mg with some relief though only lasts a few hours, has not taken any during the day, denies sedation or confusion with the dosing. Patient demonstrates fairly significant pain behaviors with shifting repositioning difficulty getting settled. At end of visit did position him with legs elevated pillows appropriately placed, and patient appears much more relaxed in recumbent position.) Tiredness/Fatigue: Severe (7-10) (Patient did have brother visiting and company over the weekend, he does report severe fatigue, he had been actually fairly active up to a couple weeks ago. Now is very poor activity tolerance, he is still going back and forth to the bathroom and walking short distances. But this is with significant effort.) Drowsiness/Sedation: Moderate (4-6) Nausea: Mild (1-3) (Patient has low-grade underlying nausea, has had 2 episodes of vomiting. This does discourage him from eating. is unable to identifying any precipitating factors) Depression: None Anxiety: None Dyspnea: Moderate (4-6) Anorexia: Severe (7-10) (Patient does describe early satiety, taste changes, and impacted by nausea.) Sleep: Variable sleep pattern Constipation: Yes, Opoid induced, Intermittent constipation Feelings of wellbeing/Perceived Quality of Life: Worsening Performance Status: Patient has had a fairly rapid decline in his functional status, this is also related to his mini edema, activity tolerance, shortness of breath and discomfort. His is assisting him with personal care and dressing, he does spend the majority of the time laying or sitting, he has had a fairly significant exchange underwriting consultant the last few weeks. He did report he got some relief with the transfusion, will put him at a PPS of 40% - Palliative Care Discussion: Family meeting with Veronica, son Justin, and daughter Ayesha and as well as [id number] and several grandchildren. All are aware of the seriousness of the situation, patient is the patriarch of the family. 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 In the context of hoping for the best, hoping for response to the immunotherapy, but understand is complicated with his rare cancer and transplant status. Patient does present with high symptom burden, and complex care regimen, feels overwhelmed and "does not want to talk about it". Family though did proceed has many questions about the continuum of care, patient at end-of-life does want to be home, provided information regarding hospice, the hospice team, and the goals regarding focus on comfort versus treatment. Patient has always been "fighter", did receive a kidney transplant at age 82 and has done very well up to this time of his diagnosis of cancer. Counseling regarding weighing benefits and burdens of choices moving forward, and also support available if treatment does not work. Patient does have DPO a assigned, it is his Veronica, if he is unable to adduct or unwilling is designated to Justin Soto and Ayesha Murphy as joint attorneys in fact. Patient has a health directive, but does direct no artificial nutrition and hydration if diagnosed with a terminal condition, it is fairly generic in presentation. I did not introduce the CHUCK [facility] at this visit , but will follow up as patient and family are quite overwhelmed with pending decisions and decline Results - Lab Results Lab results reviewed: Yes Lab and Imaging Results: Unfortunately patient does not have a CBC available secondary to lab error, on sodium 128, potassium 3.2, BUN 37, creatinine 2.0, GFR 32, calcium 8.0, and total bili 1.3 these are worsening compared to labs available to me from 05/29. Impression and Recommendations - Palliative Care Impression: This is a tony 87-year-old gentleman with metastatic Brando cell carcinoma, right elbow primary, with right axillary clinical node dissection followed by adjuvant radiation, with metastatic spread to the liver. He is currently received 1 dose of immunotherapy AVELUMAB. He is status post renal transplant, has come off his sirolimus in hopes to improve his response to his treatment. He presents with high symptom burden, functional decline, anasarca, and low urine output. Palliative care to provide support for symptom management, anticipatory guidance, and transition to hospice when appropriate. Recommendations/Counseling Done: 1. Pain presenting as multifactorial in origin. Patient does present with discomfort most likely from ascites and hepatomegaly as well as right sided pain radiating from the shoulder thoracic area down into the right hip. Patient does not identify it with the language of "pain" but cannot sit uncomfortable. Counseling her recommendation on [id number], use of his oxycodone 5 mg, patient has not had sedation or significant side effects, recommended 1/2-1 tab every 4-5 hours [id number]. He does present with significant pain behaviors and discomfort. Given his renal status, most likely would transition to low-dose fentanyl patch in the near future after determined opioid tolerance 2. Constipation secondary to opioid use. Patient has been counseled on regular use of senna 1-2 tabs daily, addition of MiraLAX for softening if needed. 3. Nausea. Patient is without antiemetic, will product picker after visit. Discussed preemptively using ondansetron, then attempting to eat hour afterwards. Patient with poor oral intake, instructed on small frequent feedings, and use of nutritional supplements. 4. Generalized weakness. This again is multifactorial in origin, patient at high risk for fall. Counseling regarding concern for sequela of a fall given his current fragile situation, does have a walker available, patient agreed to safety measures. 5. Anasarca. Patient does present with fairly significant lower extremity edema. Reviewed and demonstrated appropriate positioning for comfort and leg elevation, had been hyperextending his knees adding to his discomfort. 6. Brando cell carcinoma, right upper extremity with metastatic disease to liver. Patient is quite determined to attend follow-up appointment on , at that point in time will receive information from labs, and further direction as far as therapeutic interventions. His case is complicated by his transplant status, counseling regarding weighing benefits and burdens and defining goals. 7. Advanced care planning. Patient and family aware of the seriousness of his current illness, are hoping for the best, but did allow counseling regarding continuum of care including review of hospice benefit and patient's end-of-life wishes. Patient does need to complete a CHUCK ST, given the tenderness of our first meeting and high anxiety, will address at her next visit. Palliative care to provide ongoing support for pain and symptom management, anticipatory guidance, and [place]Prescriptions were provided for "comfort kit", morphine concentrate and Lorazepam intensol, instructed daughter to store a safe place. Concern patient may transition quickly, and will need medications available. Provided information and support regarding long-term care insurance as able to address questions. 8. Medication adhereance. Daughter Ayesha is to take a more primary role in overseeing patient's care and medications. Reviewed medications and prioritized regarding pill burden and review of symptom medications. 9. Existential distress. Counseling regarding normalizing current feelings of grief and loss, Patient does have regular visiting automobile carpets molder, reviewed other team members with licensed clinical social worker and physician practice administrator. Time Spent: 75 minutes with greater than 50% of this done in counseling regarding pain and symptom management, anticipatory guidance, role of palliative care, establishing rapport and will follow up with coordination of care.
== END 2018-06-17 15:36 | disposition home or self-care (01) ==
LOC: PC 15:35
PROVIDERS: ATTEND Nurse Practitioner Adult Health
DX: Z51.5 Encounter for palliative care (principal); K59.03 Drug induced constipation; T40.2X5D Adverse effect of other opioids, subsequent encounter; Z79.891 Long term (current) use of opiate analgesic; R11.0 Nausea; M62.81 Muscle weakness (generalized); R60.1 Generalized edema; C4A.61 Merkel cell carcinoma of right upper limb, including shoulder; C78.7 Secondary malignant neoplasm of liver and intrahepatic bile duct; N18.6 End stage renal disease; I70.1 Atherosclerosis of renal artery; Z94.0 Kidney transplant status; L98.8 Other specified disorders of the skin and subcutaneous tissue; Z79.82 Long term (current) use of aspirin; Z79.52 Long term (current) use of systemic steroids
CPT/HCPCS: 99345